=== PATIENT | male | born 1995 | race Hispanic/Latino ===

== ENCOUNTER 2021-06-25 19:50 | Inpatient (IN) | payer MEDICAID, OTHER ==
[~2021-06-25] VITALS: Ht 167.6 cm; Wt 113.4 kg
[2021-06-25 19:52] VITALS: BP 129/92
[2021-06-26] VITALS (9 sets, daily range): BP systolic 114–145; BP diastolic 59–81
[2021-06-26] MEDS ORDERED: CEFEPIME HCL 2 GM VIAL IVP STA (01:27)
[2021-06-26] MEDS ORDERED: LACTATED RINGERS 1000ML 500 ML IV ONE (01:30)
[2021-06-26] MEDS ORDERED: ONDANSETRON 4MG INJ IVP ONE (01:30)
[2021-06-26] MEDS ORDERED: VANCOMYCIN 1G VIAL IVPB ONE (01:30)
[2021-06-26] MEDS ORDERED: PANTOPRAZOLE 40 MG/VIAL IVP SCH (01:30)
[2021-06-26] MEDS ORDERED: 0.9% NACL 250ML IVPB ONE (01:30)
[2021-06-26] MEDS ORDERED: LACTATED RINGERS 1000ML 2,000 ML IV ONE (01:30)
[2021-06-26] MEDS ORDERED: PHARMACY COMMUNICATION MISC SCH (02:00)
[2021-06-26] MEDS ORDERED: VANCOMYCIN KIT 250 ML IV ONE (02:00)
[2021-06-26 02:01] LABS: BASOPHILS % (AUTO) 0.2 % (0.0-5.0); LYMPHOCYTES % (AUTO) 29.9 % (21.0-51.0); MEAN CORPUSCULAR HEMOGLOBIN 30.6 pg (27.0-33.0); MEAN CORPUSCULAR HGB CONC 34.7 g/dL (32.0-36.0); MEAN CORPUSCULAR VOLUME 88.4 fL (79-99); MONOCYTES % (AUTO) 9.7 % (3.0-13.0); NEUTROPHILS % (AUTO) 59.8 % (40.0-77.0); PLATELET COUNT (AUTO) 242 K/uL (130-400); RED BLOOD CELL COUNT(AUTO) 5.09 MIL/uL (4.50-6.20); RED CELL DISTRIBUTION WIDTH 13.2 % (11.0-15.5); WHITE BLOOD COUNT (AUTO) 4.9 K/uL (4.8-10.8)
[2021-06-26 02:04] LABS: CREATININE 1.3 mg/dL (0.5-1.5); POTASSIUM 3.3 mmol/L (3.5-5.1)
[2021-06-26 02:05] LABS: INR 1.07 (0.85-1.15); PROTHROMBIN TIME 11.6 SEC (9.6-11.6)
[2021-06-26 02:06] LABS: ALBUMIN 3.8 g/dL (3.5-5.0); BILIRUBIN,TOTAL 0.4 mg/dL (0.2-1.0); CRP QUANTITATIVE 23.7 mg/L (0.00-9.0); MAGNESIUM 1.8 mg/dL (1.80-2.40); PARTIAL THROMBOPLASTIN TIME 30.6 SEC (26.3-35.5); TOTAL PROTEIN, SERUM 8.6 g/dL (6.0-8.3)
[2021-06-26 02:23] LABS: ABG BASE EXCESS -2.8 mmol/L (-2.0-3.0); ABG HCO3 19.9 mmol/L (21.0-28.0); ABG OXYGEN SATURATION 95.9 % (95.0-99.0); ABG PCO2 29 mmHg (35-48)
[2021-06-26] MEDS ORDERED: IOHEXOL 350 MG/ML 100ML INFUS..BTL IV ONE (02:38)
[2021-06-26] MEDS ORDERED: MAG/ALUM/SIMETH 30 ML UDCUP PO PRN (04:30)
[2021-06-26] MEDS ORDERED: ACETAMINOPHEN WITH CODEINE 1 TAB TAB PO PRN ×2 (04:30)
[2021-06-26] MEDS ORDERED: KCL 20 MEQ ERTAB PO PRN ×2 (04:30→07:30)
[2021-06-26] MEDS ORDERED: POTASSIUM CHLORIDE 20MEQ/100ML 100 ML IV PRN ×2 (04:30→07:30)
[2021-06-26] MEDS ORDERED: LIDOCAINE HCL-MPF 1% 2ML VIAL IV PRN ×2 (04:30→07:30)
[2021-06-26] MEDS ORDERED: GUAIFENESIN-DM 200/20 MG 10 ML PO PRN (04:30)
[2021-06-26] MEDS ORDERED: LACTULOSE 20 GM/30 ML UDCUP PO PRN (04:30)
[2021-06-26] MEDS ORDERED: 0.9% NACL 250ML IVPB SCH (04:30)
[2021-06-26] MEDS ORDERED: DIPHENHYDRAMINE HCL 25 MG CAPSULE PO PRN (04:30)
[2021-06-26] MEDS ORDERED: DOXYCYCLINE 100MG IVPB (VIAL) IVPB SCH (04:30)
[2021-06-26] MEDS ORDERED: ACETAMINOPHEN 325 MG TAB PO PRN (04:30)
[2021-06-26] MEDS ORDERED: ONDANSETRON 4MG INJ IV PRN (04:30)
[2021-06-26] MEDS ORDERED: POTASSIUM CHLORIDE 10% ELIXIR 20 MEQ/15 ML UDCUP PO PRN ×2 (04:30→07:30)
[2021-06-26] MEDS ORDERED: ALBUTEROL INHALER 90MCG/INH IH PRN (04:30)
[2021-06-26] MEDS: 0.9%NACL 1000ML 1,000 ML IV SCH ×2 (04:46→15:56)
[2021-06-26] MEDS: DEXAMETHASONE SOD PHOSPHATE 4 MG/ML 1ML VIAL IVP SCH (04:46)
[2021-06-26] MEDS: DOXYCYCLINE 100MG+NS 250ML 250 ML IV SCH ×2 (04:46→15:56)
[2021-06-26] MEDS: ASCORBIC ACID 500 MG TAB PO SCH (10:24)
[2021-06-26] MEDS: FAMOTIDINE 20MG VIAL IV SCH ×2 (10:24→21:03)
[2021-06-26] MEDS: ZINC SULFATE 220 CAPSULE PO SCH (10:24)
[2021-06-26] MEDS: ENOXAPARIN SODIUM 40 MG/0.4 ML SYRINGE SQ SCH (10:26)
[2021-06-26] MEDS ORDERED: PHARMACY COMMUNICATION**REMDESIVIR MISC SCH (11:00)
[2021-06-26] MEDS: PHARMACY COMMUNICATION MISC SCH ×2 (13:00→19:00)
[2021-06-27] MEDS: PHARMACY COMMUNICATION MISC SCH ×4 (01:00→19:00)
[2021-06-27 01:39] VITALS: BP 118/54
[2021-06-27] MEDS: 0.9%NACL 1000ML 1,000 ML IV SCH ×2 (01:47→10:30)
[2021-06-27] MEDS: DOXYCYCLINE 100MG+NS 250ML 250 ML IV SCH (04:27)
[2021-06-27] MEDS: DEXAMETHASONE SOD PHOSPHATE 4 MG/ML 1ML VIAL IVP SCH (04:27)
[2021-06-27] MEDS ORDERED: REMDESIVIR (EUA) 520 200 MG in 0.9% NACL 250ML 250 ML IV SCH (07:00)
[2021-06-27] MEDS ORDERED: COMPOUND IV REFRIGERATED 1 EACH IVSOLN MISC PRN (07:00)
[2021-06-27 07:25] LABS: BASOPHILS % (AUTO) 0.2 % (0.0-5.0); HEMATOCRIT 38.4 % (42-54); LYMPHOCYTES % (AUTO) 17.6 % (21.0-51.0); MEAN CORPUSCULAR HEMOGLOBIN 30.2 pg (27.0-33.0); MEAN CORPUSCULAR HGB CONC 34.1 g/dL (32.0-36.0); MEAN CORPUSCULAR VOLUME 88.5 fL (79-99); MONOCYTES % (AUTO) 6.5 % (3.0-13.0); NEUTROPHILS % (AUTO) 75.3 % (40.0-77.0); PLATELET COUNT (AUTO) 196 K/uL (130-400); RED BLOOD CELL COUNT(AUTO) 4.34 MIL/uL (4.50-6.20); RED CELL DISTRIBUTION WIDTH 13.2 % (11.0-15.5); WHITE BLOOD COUNT (AUTO) 5.6 K/uL (4.8-10.8)
[2021-06-27 07:53] LABS: ALBUMIN 2.8 g/dL (3.5-5.0); BILIRUBIN,TOTAL 0.3 mg/dL (0.2-1.0); CREATININE 0.9 mg/dL (0.5-1.5); CRP QUANTITATIVE 8.9 mg/L (0.00-9.0); POTASSIUM 3.9 mmol/L (3.5-5.1); TOTAL PROTEIN, SERUM 6.7 g/dL (6.0-8.3)
[2021-06-27] MEDS: FAMOTIDINE 20MG VIAL IV SCH ×2 (08:41→20:28)
[2021-06-27] MEDS: ZINC SULFATE 220 CAPSULE PO SCH (08:42)
[2021-06-27] MEDS: ASCORBIC ACID 500 MG TAB PO SCH (08:42)
[2021-06-27] MEDS: ENOXAPARIN SODIUM 40 MG/0.4 ML SYRINGE SQ SCH (08:42)
[2021-06-27 08:45] VITALS: BP 116/61
[2021-06-27 11:29] VITALS: BP 117/60
[2021-06-27] MEDS ORDERED: DOXYCYCLINE 100MG+NS 250ML 250 ML IV ONE (16:46)
[2021-06-27 17:20] VITALS: BP 117/60
[2021-06-27 20:00] VITALS: BP 119/65
[2021-06-28] VITALS: BP 107/59
[2021-06-28] MEDS: PHARMACY COMMUNICATION MISC SCH (01:00)
[2021-06-28 04:11] VITALS: BP 107/59
[2021-06-28] MEDS ORDERED: REMDESIVIR LABS MISC SCH (06:00)
[2021-06-28 06:08] LABS: BASOPHILS % (AUTO) 0.2 % (0.0-5.0); HEMATOCRIT 38.4 % (42-54); LYMPHOCYTES % (AUTO) 42.5 % (21.0-51.0); MEAN CORPUSCULAR HEMOGLOBIN 30.6 pg (27.0-33.0); MEAN CORPUSCULAR HGB CONC 34.9 g/dL (32.0-36.0); MEAN CORPUSCULAR VOLUME 87.7 fL (79-99); MONOCYTES % (AUTO) 9.6 % (3.0-13.0); NEUTROPHILS % (AUTO) 47.3 % (40.0-77.0); PLATELET COUNT (AUTO) 235 K/uL (130-400); RED BLOOD CELL COUNT(AUTO) 4.38 MIL/uL (4.50-6.20); RED CELL DISTRIBUTION WIDTH 13.1 % (11.0-15.5); WHITE BLOOD COUNT (AUTO) 4.9 K/uL (4.8-10.8)
[2021-06-28 06:35] LABS: ALBUMIN 2.8 g/dL (3.5-5.0); BILIRUBIN,TOTAL 0.2 mg/dL (0.2-1.0); CREATININE 0.8 mg/dL (0.5-1.5); CRP QUANTITATIVE 5.9 mg/L (0.00-9.0); POTASSIUM 3.7 mmol/L (3.5-5.1); TOTAL PROTEIN, SERUM 6.6 g/dL (6.0-8.3)
[2021-06-28 06:59] LABS: HEMOGLOBIN A1C 6.7 % (4.0-6.0)
[2021-06-28 08:00] VITALS: BP 111/57
[2021-06-28] MEDS: ZINC SULFATE 220 CAPSULE PO SCH (09:33)
[2021-06-28] MEDS: ASCORBIC ACID 500 MG TAB PO SCH (09:33)
[2021-06-28] MEDS: FAMOTIDINE 20MG VIAL IV SCH (09:33)
[2021-06-28] MEDS: ENOXAPARIN SODIUM 40 MG/0.4 ML SYRINGE SQ SCH (09:35)
[2021-06-28] MEDS ORDERED: ALBU8.5H8 IH (12:10)
[2021-06-28] MEDS ORDERED: ASPI-1005 PO (12:10)
[2021-06-28] MEDS ORDERED: DEXA6TAB PO (12:10)
[2021-06-28] MEDS ORDERED: REMDESIVIR (EUA) 520 100 MG in 0.9% NACL 250ML 250 ML IV SCH (13:00)
== END 2021-06-28 13:17 | disposition home or self-care (01) | DRG 177 ==
LOC: EDH 19:50 → EDHIP 06-26 04:04
PROVIDERS: ADMIT Hospitalist; ATTEND Hospitalist
PROC: XW033E5 Introduction of Remdesivir Anti-infective into Peripheral Vein, Percutaneous Approach, New Technology Group 5 (ICD-10-PCS; principal; 2021-06-27)
DX: U07.1 COVID-19 (principal); J12.82 Pneumonia due to coronavirus disease 2019; J96.91 Respiratory failure, unspecified with hypoxia; N17.9 Acute kidney failure, unspecified; E87.1 Hypo-osmolality and hyponatremia; E87.2 Acidosis; Z68.41 Body mass index [BMI] 40.0-44.9, adult; E66.01 Morbid (severe) obesity due to excess calories; E86.0 Dehydration; E86.1 Hypovolemia; E87.6 Hypokalemia; R73.9 Hyperglycemia, unspecified; Z88.0 Allergy status to penicillin
CPT/HCPCS: 36415; 36600; 71045; 74177; 80053; 82728; 82803; 83036; 83605; 83690; 83735; 84145; 85025; 85378; 85610; 85730; 86140; 86677; 87040; 87635; C9113; C9803; G0378; J1100; J1650; J2405; J3370; J3490; J7030; J7050; Q9967